=== PATIENT | male | born 1965 | race Caucasian/White ===

== ENCOUNTER 2021-07-17 05:43 | Observation (INO) ==
[2021-07-17] MEDS ORDERED: SODIUM CHLORIDE 0.9% 1,000 ML IV STA ×2 (05:53→07:02)
[2021-07-17] MEDS ORDERED: METOPROLOL TARTRATE 5 MG/5 ML VIAL IV ONE (06:21)
[2021-07-17] MEDS ORDERED: METOPROLOL TARTRATE 5 MG/5 ML VIAL IV STA (06:33)
[2021-07-17 06:34] LABS: Basophils % 0.1 % (0.0-0.8); Hematocrit 43.1 VOL% (42.0-52.0); Hemoglobin 15.4 GM/DL (14.0-18.0); Immature Granulocytes % 0.4 %; Immature Granulocytes Absolute 0.06 #; Lymphocytes % 7.7 % (21.2-54.2); Mean Corpuscular HGB Conc 35.7 GM/DL (32-36); Mean Corpuscular Volume 100.7 FL (87-102); Mean Platelet Volume 10.5 FL (9.6-12.0); Monocytes # 1.5 10*3/uL (0.11-0.8); Monocytes % 11.3 % (1.7-12.7); Neutrophils % 80.5 % (38.7-73.9); Platelet Count 246 T/CUMM (130-400); Red Blood Count 4.28 MC/CUMM (3.8-5.5); Red Cell Distribution Width 13.2 % (9.3-17.3); White Blood Count 13.5 T/CUMM (4-12)
[2021-07-17 06:54] LABS: Alanine Aminotransferase 79 U/L (16-61); Alkaline Phosphatase 69 U/L (45-117); Aspartate Amino Transferase 62 U/L (0-37); Blood Urea Nitrogen 23 MG/DL (7-18); Calcium 9.5 MG/DL (8.5-10.1); Carbon Dioxide 26 MMOL/L (21-32); Chloride 105 MMOL/L (98-107); Glucose 171 MG/DL (74-106); Osmolality,Calculated 280.8 MOS/KG (273-304); Potassium 3.6 MMOL/L (3.5-5.1); Sodium 137 MMOL/L (136-145); Total Protein 7.8 G/DL (6.4-8.2)
[2021-07-17] MEDS ORDERED: atenoloL 25 MG TABLET PO STA (07:01)
[2021-07-17] MEDS ORDERED: atenoloL 50 MG TABLET PO ONE (07:30)
[2021-07-17] MEDS ORDERED: ZIPRASIDONE 20 MG/1 ML VIAL IM ONE ×2 (09:24→09:25)
[2021-07-17] MEDS ORDERED: GLUCAGON 1 MG VIAL IM PRN (09:36)
[2021-07-17] MEDS ORDERED: DEXTROSE 10% 250 ML BAG IV PRN (09:44)
[2021-07-17] MEDS: ENOXAPARIN 40 MG/0.4 ML SYRINGE SUBCUT SCH (10:10)
[2021-07-17] MEDS: LACTATED RINGERS 1,000 ML IV SCH (11:13)
[2021-07-17 15:58] LABS: Bilirubin,Urine Small mg/dL (Negative); Blood, Urine Small mg/dL (Negative); Glucose,Urine (UA) Negative (Negative); Ketones,Urine Negative (Negative); Nitrite,Urine Negative (Negative); Protein,Urine 100 mg/dL (Negative); Urine Appearance Slightly Cloudy (Clear); Urine Color Dark Yellow (Yellow)
[2021-07-17 16:01] LABS: Hyaline Casts,Urine 19 /LPF (0-3); Mucus,Urine Many /LPF (Occasional); RBC,Urine 62 /HPF (0-4); Squamous Epithelial Cell,Urine Occasional /HPF (0-10)
[2021-07-17 16:02] LABS: Urine Specific Gravity 1.029 (1.001-1.035)
[2021-07-17 16:07] LABS: Barbiturates Screen,Urine Negative (Negative); Benzodiazepines Screen,Urine Negative (Negative); Cannabinoid Screen,Urine Negative (Negative); Opiate Screen,Urine Negative (Negative); Phencyclidine Screen,Urine Negative (Negative)
[2021-07-17] MEDS: LABETALOL 20 MG/4 ML SYRINGE IV SCH ×2 (18:31→23:16)
[2021-07-17] MEDS ORDERED: diphenhydrAMINE CAP 25 MG CAPSULE PO ONE (23:35)
[2021-07-18] MEDS: LACTATED RINGERS 1,000 ML IV SCH ×3 (03:23→15:58)
[2021-07-18] MEDS: LABETALOL 20 MG/4 ML SYRINGE IV SCH ×3 (05:49→17:19)
[2021-07-18 06:26] LABS: Basophils % 0.3 % (0.0-0.8); Eosinophils # 0.2 10*3/uL (0.0-0.87); Eosinophils % 1.9 % (0.00-10.9); Hematocrit 38.1 VOL% (42.0-52.0); Hemoglobin 13.6 GM/DL (14.0-18.0); Immature Granulocytes % 0.4 %; Immature Granulocytes Absolute 0.04 #; Lymphocytes # 2.1 10*3/uL (1.4-4.0); Lymphocytes % 22.5 % (21.2-54.2); Mean Corpuscular HGB Conc 35.7 GM/DL (32-36); Mean Corpuscular Volume 101.3 FL (87-102); Monocytes # 1.1 10*3/uL (0.11-0.8); Monocytes % 11.6 % (1.7-12.7); Neutrophils % 63.3 % (38.7-73.9); Platelet Count 232 T/CUMM (130-400); Red Blood Count 3.76 MC/CUMM (3.8-5.5); Red Cell Distribution Width 13.1 % (9.3-17.3); White Blood Count 9.1 T/CUMM (4-12)
[2021-07-18 06:52] LABS: Albumin 3.1 G/DL (3.4-5.0); Bilirubin,Total 2.2 MG/DL (0.20-1.00); Calcium 8.7 MG/DL (8.5-10.1); Osmolality,Calculated 274.7 MOS/KG (273-304); Potassium 3.5 MMOL/L (3.5-5.1); Thyroid Stimulating Hormone 0.795 uIU/ml (0.358-3.74); Total Protein 6.4 G/DL (6.4-8.2)
[2021-07-18 08:36] LABS: Hepatitis B Core IgM Quant < 0.05 Index; Hepatitis B Surface Ag Quant < 0.10 Index; Hepatitis B Surface Ag Result Non-Reactive (NonReactive); Hepatitis C Virus Ab Quant 0.04 Index; Hepatitis C Virus Ab Result Non-Reactive (NonReactive)
[2021-07-18] MEDS: FLUoxetine 20 MG CAPSULE PO SCH (08:50)
[2021-07-18] MEDS: risperiDONE 1 MG TABLET PO SCH ×2 (08:50→21:06)
[2021-07-18] MEDS: amLODIPine 5 MG TABLET PO SCH (08:50)
[2021-07-18] MEDS: busPIRone 5 MG TABLET PO SCH ×2 (08:50→21:06)
[2021-07-18] MEDS: ENOXAPARIN 40 MG/0.4 ML SYRINGE SUBCUT SCH (08:51)
[2021-07-18] MEDS: ZIPRASIDONE 20 MG/1 ML VIAL IM PRN ×2 (09:26→15:56)
[2021-07-19] MEDS: LABETALOL 20 MG/4 ML SYRINGE IV SCH (05:28)
[2021-07-19 06:32] LABS: Basophils % 0.4 % (0.0-0.8); Eosinophils # 0.2 10*3/uL (0.0-0.87); Hematocrit 38.9 VOL% (42.0-52.0); Hemoglobin 13.6 GM/DL (14.0-18.0); Immature Granulocytes % 0.4 %; Immature Granulocytes Absolute 0.03 #; Lymphocytes # 1.2 10*3/uL (1.4-4.0); Lymphocytes % 16.8 % (21.2-54.2); Mean Corpuscular Volume 100.8 FL (87-102); Mean Platelet Volume 11.2 FL (9.6-12.0); Monocytes # 0.8 10*3/uL (0.11-0.8); Neutrophils % 68.4 % (38.7-73.9); Platelet Count 247 T/CUMM (130-400); Red Blood Count 3.86 MC/CUMM (3.8-5.5); Red Cell Distribution Width 12.9 % (9.3-17.3); White Blood Count 7.3 T/CUMM (4-12)
[2021-07-19 07:06] LABS: Bilirubin,Total 1.7 MG/DL (0.20-1.00); Calcium 8.5 MG/DL (8.5-10.1); Osmolality,Calculated 272.7 MOS/KG (273-304); Potassium 3.7 MMOL/L (3.5-5.1); Total Protein 6.1 G/DL (6.4-8.2)
[2021-07-19 08:18] VITALS: BP 154/82
[2021-07-19] MEDS: LACTATED RINGERS 1,000 ML IV SCH (08:25)
[2021-07-19] MEDS: ENOXAPARIN 40 MG/0.4 ML SYRINGE SUBCUT SCH (10:06)
[2021-07-19] MEDS: amLODIPine 5 MG TABLET PO SCH (10:06)
[2021-07-19] MEDS: busPIRone 5 MG TABLET PO SCH (10:06)
[2021-07-19] MEDS: risperiDONE 1 MG TABLET PO SCH (10:07)
[2021-07-19] MEDS: FLUoxetine 20 MG CAPSULE PO SCH (10:07)
== END 2021-07-19 10:15 | disposition home or self-care (01) ==
LOC: EDUNIT# → EDBD → N.ED 05:43 → N.EDINP 05:43 → SUATTDRO 09:35 → N.3E 16:38
PROVIDERS: ADMIT Internal Medicine; ATTEND Internal Medicine